=== PATIENT | female | born 1960 | race American Indian/Alaskan Native ===

== ENCOUNTER 2019-01-21 18:19 | Emergency (ER) | payer MEDICARE, MEDICAID ==
--- NOTE | 2019-01-21 19:02 | Event Note ---
ED Screening Note Date of service: 01/21/19 Time: 18:58 ED Screening Note: This is a 58 y.o. F. that presents to ER with left knee pain and swelling x 2 weeks. Patient also reports swelling and pain to posterior right forearm. States she fell a few days ago. PCP Dr. Donato at [facility]. This initial assessment/diagnostic orders/clinical plan/treatment(s) is/are subject to change based on patients health status, clinical progression and re- assessment by fellow clinical providers in the ED. Further treatment and workup at subsequent clinical providers discretion. Patient/guardian urged not to elope from the ED as their condition may be serious if not clinically assessed and managed. Initial orders include: XR left knee and right forearm.
--- NOTE | 2019-01-21 20:02 | XRay Report ---
Left knee-3 views INDICATION: swelling and pain to anterior. COMPARISON: None. IMPRESSION: No acute osseous or soft tissue abnormality. Moderate tricompartmental DJD. Signer Name: Lewis Delacruz MD Signed: 01/21/2019 7:58 PM Workstation Name: [id number]
--- NOTE | 2019-01-21 20:04 | XRay Report ---
RIGHT FOREARM 2 VIEWS INDICATION / CLINICAL INFORMATION: Right posterior forearm pain and swelling. COMPARISON: None available. FINDINGS: BONES / JOINT(S): 2 metallic plates and screws transfix the majority of the ulna. No surgical complic ation is seen. There are mild degenerative changes involving the elbow. There is cystic lucency in th e lunate which may be developmental or degenerative.. There is no evidence of fracture, dislocation o r destructive lesion. SOFT TISSUES: There is localized soft tissue swelling involving the proximal to mid forearm posterior ly on the lateral view. I see no evidence of a radiopaque foreign body or soft tissue gas. ADDITIONAL FINDINGS: None. IMPRESSION: Localized soft tissue swelling involving the posterior forearm without other acute abnorm ality. Signer Name: Mian Mejia MD Signed: 01/21/2019 8:00 PM Workstation Name: [id number]
[2019-01-21] MEDS ORDERED: NORCO 5/325 PO ONE (22:02)
[2019-01-21] MEDS ORDERED: ZOFRAN ODT PO ONE (22:02)
--- NOTE | 2019-01-21 22:16 | Emergency Department Report ---
ED General Adult HPI - General Chief complaint: Pain General Stated complaint: KNEE/ARM/L EAR PAIN Time Seen by Provider: 01/21/19 18:58 Source: patient Mode of arrival: Ambulatory Limitations: No Limitations - History of Present Illness Initial comments: Patient is a 58-year-old [place] female with a history of chronic degenerative joint disease from previous injuries and surgeries presents to the ED with complaint of severe right forearm and elbow pain and left knee pain after she tripped and fell at home or 1 month ago but it got worse 2 days ago. Patient says that she has been taking ibuprofen at home with no relief. Patient states that the pain is persistent especially at rest. Patient states that she was treated for the same at [facility] and was given MS Contin 15 mg tablets to take which even out of. Patient states that she would like a refill on these medications to help her pain. Patient also complained of left ear cerumen impaction which has decreased hearing acuity. Patient denies ear pain, dizziness, headache, chest pain, shortness of breath, nausea, vomiting, headache, numbness and tingling of upper and lower extremities bilaterally, abdominal pain, hematuria or neck pain. MD Complaint: right elbow and forearm pain; left knee pain -: Gradual, year(s) Location: upper extremity (right elbow and forearm), lower extremity (left knee) Radiation: non-radiation Severity scale (0 -10): 10 Quality: aching, sharp Consistency: constant Improves with: none Worsens with: movement Associated Symptoms: denies other symptoms. denies: confusion, chest pain, cough, diaphoresis, headaches, loss of appetite, malaise, nausea/vomiting, rash, shortness of breath, syncope, weakness Treatments Prior to Arrival: none - Related Data Previous Rx's Medication Instructions Recorded Last Taken Type Diclofenac Potassium 50 mg PO Q8H PRN #15 tablet 01/21/19 Unknown Rx tiZANidine [Zanaflex 4mg TAB] 4 mg PO Q8H PRN #20 tablet 01/21/19 Unknown Rx Allergies Allergy/AdvReac Type Severity Reaction Status Date / Time tramadol AdvReac Nausea Verified 01/21/19 19:00 ED Review of Systems ROS: Stated complaint: KNEE/ARM/L EAR PAIN Other details as noted in HPI Constitutional: denies: chills, fever Eyes: denies: eye pain, eye discharge, vision change ENT: denies: ear pain, throat pain Respiratory: denies: cough, shortness of breath, wheezing Cardiovascular: denies: chest pain, palpitations Endocrine: no symptoms reported Gastrointestinal: denies: abdominal pain, nausea, diarrhea Genitourinary: denies: urgency, dysuria, discharge Musculoskeletal: joint swelling (right elbow and forearm), arthralgia (right elbow; left knee). denies: back pain Skin: denies: rash, lesions Neurological: denies: headache, weakness, paresthesias Psychiatric: denies: anxiety, depression Hematological/Lymphatic: denies: easy bleeding, easy bruising ED Past Medical Hx - Past Medical History Previous Medical History?: Yes Hx Hypertension: Yes Hx CVA: Yes Additional medical history: glaucoma, high cholesterol - Surgical History Past Surgical History?: Yes Additional Surgical History: right arm, bilateral knee surgery - Social History Smoking Status: Current Every Day Smoker Substance Use Type: None - Medications Home Medications: Home Medications Medication Instructions Recorded Confirmed Last Taken Type Diclofenac Potassium 50 mg PO Q8H PRN #15 tablet 01/21/19 Unknown Rx tiZANidine [Zanaflex 4mg TAB] 4 mg PO Q8H PRN #20 tablet 01/21/19 Unknown Rx ED Physical Exam - General Limitations: No Limitations General appearance: alert, in no apparent distress - Head Head exam: Present: atraumatic, normocephalic - Eye Eye exam: Present: normal appearance, PERRL, EOMI. Absent: scleral icterus, conjunctival injection Pupils: Present: normal accommodation - ENT ENT exam: Present: normal exam, normal orophraynx, mucous membranes moist, TM's normal bilaterally, other (left ear cerumen impaction) - Neck Neck exam: Present: normal inspection, full ROM - Respiratory Respiratory exam: Present: normal lung sounds bilaterally. Absent: respiratory distress, wheezes, rales, rhonchi, chest wall tenderness, accessory muscle use, decreased breath sounds - Cardiovascular Cardiovascular Exam: Present: regular rate, normal rhythm, normal heart sounds. Absent: systolic murmur, diastolic murmur, rubs, gallop - GI/Abdominal GI/Abdominal exam: Present: soft, normal bowel sounds. Absent: tenderness, guarding, rebound, hyperactive bowel sounds, hypoactive bowel sounds, mass - Rectal Rectal exam: Present: deferred - Extremities Exam Extremities exam: Present: normal inspection, tenderness (right forearm, elbow; left knee), joint swelling (right elbow, left knee) - Back Exam Back exam: Present: normal inspection, full ROM. Absent: tenderness, CVA tenderness (L), muscle spasm, paraspinal tenderness, vertebral tenderness - Neurological Exam Neurological exam: Present: alert, oriented X3, CN II-XII intact, normal gait, reflexes normal - Psychiatric Psychiatric exam: Present: normal affect, normal mood - Skin Skin exam: Present: warm, dry, intact, normal color. Absent: rash ED Course Vital Signs 01/21/19 18:58 Temperature 98.7 F Pulse Rate 71 Respiratory 18 Rate Blood Pressure 143/77 [Right] O2 Sat by Pulse 98 Oximetry - Reevaluation(s) Reevaluation #1: 01/21/19 22:16 Patient is alert and oriented 3 and is not in distress. Patient was treated for pain in the ED and discharged home and advised to continue taking her pain medications that she has at home which are mainly anti-inflammatory medications. Patient was advised to follow-up with her orthopedic surgeon for reevaluation. Patient was otherwise advised to return to the ED immediately if her symptoms get worse ED Medical Decision Making - Radiology Data Radiology results: report reviewed, image reviewed allan Physician: ALLIE KOTHARI Date of Service: 01/21/19 Procedure(s): XR knee 3V LT Accession Number(s): [id number] cc: ALLIE KOTHARI Fluoro Time In Minutes: Left knee-3 views INDICATION: swelling and pain to anterior. COMPARISON: None. IMPRESSION: No acute osseous or soft tissue abnormality. Moderate tricompartmental DJD. Signer Name: Lewis Delacruz MD Signed: 01/21/2019 7:58 PM Workstation Name: [id number] Transcribed By: JW Dictated By: Lewis Delacruz MD Electronically Authenticated By: Lewis Delacruz MD Signed Date/Time: 01/21/191957 allan Physician: ALLIE KOTHARI Date of Service: 01/21/19 Procedure(s): XR forearm RT Accession Number(s): [id number] cc: ALLIE KOTHARI Fluoro Time In Minutes: RIGHT FOREARM 2 VIEWS INDICATION / CLINICAL INFORMATION: Right posterior forearm pain and swelling. COMPARISON: None available. FINDINGS: BONES / JOINT(S): 2 metallic plates and screws transfix the majority of the ulna. No surgical complication is seen. There are mild degenerative changes involving the elbow. There is cystic lucency in the lunate which may be developmental or degenerative.. There is no evidence of fracture, dislocation or destructive lesion. SOFT TISSUES: There is localized soft tissue swelling involving the proximal to mid forearm posteriorly on the lateral view. I see no evidence of a radiopaque foreign body or soft tissue gas. ADDITIONAL FINDINGS: None. IMPRESSION: Localized soft tissue swelling involving the posterior forearm without other acute abnormality. Signer Name: Mian Mejia MD Signed: 01/21/2019 8:00 PM Workstation Name: [id number] - Medical Decision Making Patient is alert and oriented 3 and is not in distress. Patient was treated for pain in the ED and discharged home and advised to continue taking her pain medications that she has at home which are mainly anti-inflammatory medications. Right elbow and forearm x-ray as well as left knee x-ray show no acute fractures or subluxations but degenerative joint disease. The metallic hardware in her right elbow and forearm is intact. Patient requested MS Contin 15mg prescription medications but was advised that those medications are only administered in pain clinics and not an emergency department. Patient was advised to follow-up with her orthopedic surgeon for reevaluation. Patient was otherwise advised to return to the ED immediately if her symptoms get worse - Differential Diagnosis chronic pain; chronic degenerative joint disease Critical care attestation.: If time is entered above; I have spent that time in minutes in the direct care of this critically ill patient, excluding procedure time. 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, unspecified site Chronic pain Qualifiers: Chronic pain type: due to trauma Qualified Code(s): G89.21 - Chronic pain due to trauma Contusion of right forearm Qualifiers: Encounter type: initial encounter Qualified Code(s): S50.11XA - Contusion of right forearm, initial encounter Disposition: - TO HOME OR SELFCARE Is pt being admited?: No Does the pt Need Aspirin: No Condition: Stable Instructions: Osteoarthritis (ED), Arthralgia (ED), Knee Pain (ED), Cerumen Impaction (ED) Additional Instructions: Particular pain medications with food, drink plenty of fluids and follow-up with your primary care physician or orthopedic surgeon in 5-7 days for reevaluation. Return to the ED immediately if symptoms get worse. Prescriptions: Diclofenac Potassium 50 mg PO Q8H PRN #15 tablet PRN Reason: Spasms tiZANidine [Zanaflex 4mg TAB] 4 mg PO Q8H PRN #20 tablet PRN Reason: Pain , Severe (7-10) Referrals: CHUCK PIERRE MD [Primary Care Provider] - 3-5 Days Time of Disposition: 22:24 Print Language: PASHTO
[2019-01-21 22:43] VITALS: BP 149/89
== END 2019-01-21 22:42 | disposition home or self-care (01) ==
LOC: ED 18:19
DX: S50.11XA Contusion of right forearm, initial encounter (principal); M19.021 Primary osteoarthritis, right elbow; M17.12 Unilateral primary osteoarthritis, left knee; M19.031 Primary osteoarthritis, right wrist; H61.22 Impacted cerumen, left ear; G89.29 Other chronic pain; I10 Essential (primary) hypertension; F17.200 Nicotine dependence, unspecified, uncomplicated; E78.00 Pure hypercholesterolemia, unspecified; Z86.73 Personal history of transient ischemic attack (TIA), and cerebral infarction without residual deficits; Z98.890 Other specified postprocedural states; Z79.899 Other long term (current) drug therapy; Z88.6 Allergy status to analgesic agent; W01.0XXA Fall on same level from slipping, tripping and stumbling without subsequent striking against object, initial encounter; Y93.89 Activity, other specified; Y92.099 Unspecified place in other non-institutional residence as the place of occurrence of the external cause; Y99.8 Other external cause status
CPT/HCPCS: 99283; Q0162